=== PATIENT | male | born 1975 ===

== ENCOUNTER → 2022-12-29 | Emergency (ER) | payer SELFPAY ==
[~2022-12-29] VITALS: Ht 167.6 cm; Wt 64.0 kg
[~2022-12-29] MED LIST: AMIT100T2 PO; CYCL10TA9 PO; DULO60CA45 PO; ERGO2000 PO; GABA600T12 PO; HYDR50TA62 PO; HYDROMORPHONE 1 MG/1 ML DISP.SYRIN IV ONE; HYDROMORPHONE 1 MG/1 ML DISP.SYRIN ONE; IOHEXOL 350 100 ML INFUS..BTL ONE; IV NORMAL SALINE 250 ML IV ONE; OXYC80TA40 PO; PRAV40TA3 PO; PRAZ5CAP2 PO; SWABABLE VALVE TRANSFER SET EA MC ONE; TENECTEPLASE 50 MG KIT IVP ONE
[2022-12-29 19:31] LABS: BASOPHILS # (AUTO) 0.1 K/UL (0.0-0.2); BASOPHILS % (AUTO) 1.2 % (0.0-2.0); EOSINOPHILS # (AUTO) 0.3 K/uL (0.0-0.7); EOSINOPHILS % (AUTO) 2.6 % (0.0-7.0); HEMATOCRIT 43.8 % (36.7-47.1); HEMOGLOBIN 14.9 g/dL (12.5-16.3); LYMPHOCYTES # (AUTO) 3.6 K/uL (0.8-4.8); LYMPHOCYTES % (AUTO) 34.3 % (20.5-51.5); MEAN CORPUSCULAR HGB CONC 34 g/dL (32.5-36.3); MEAN CORPUSCULAR VOLUME 88.6 fL (73.0-96.2); MONOCYTES # (AUTO) 0.7 K/uL (0.1-1.30); MONOCYTES % (AUTO) 6.5 % (0.0-11.0); NEUTROPHILS # (AUTO) 5.9 K/uL (1.8-8.9); NEUTROPHILS % (AUTO) 55.4 % (38.5-71.5); PLATELET COUNT (AUTO) 259 K/uL (152-348); RED BLOOD CELL COUNT(AUTO) 4.95 MIL/uL (4.06-5.63); WHITE BLOOD COUNT (AUTO) 10.6 K/uL (3.6-10.2)
[2022-12-29 19:36] LABS: CALCIUM 8.7 mg/dL (8.5-10.1); CARBON DIOXIDE 22 mmol/L (21-32); CHLORIDE 105 mmol/L (98-107); GLUCOSE 111 mg/dL (74-106); POTASSIUM 3.9 mmol/L (3.5-5.1); SODIUM SERUM 140 mmol/L (136-145); UREA NITROGEN, BLOOD 14 mg/dL (7-18)
[2022-12-29 19:45] LABS: ALANINE AMINOTRANSFERASE 27 U/L (16-63); ALBUMIN 4.1 g/dL (3.4-5.0); ALKALINE PHOSPHATASE 66 U/L (50-136); ASPARTATE AMINOTRANSFERASE 6 U/L (15-37); BILIRUBIN,DIRECT 0.1 mg/dL (0.0-0.2); BILIRUBIN,TOTAL 0.4 mg/dL (0.2-1.0)
[2022-12-29 19:51] LABS: DIFFERENTIAL COMMENT 1
[2022-12-29 21:38] VITALS: O2SAT 99
[2022-12-30 01:11] LABS: EOSINOPHILS % (MANUAL) 2 % (0-8); LYMPHOCYTES % (MANUAL) 35 % (20-40); MONOCYTES % (MANUAL) 3 % (2-10); NEUTROPHILS % (MANUAL) 60 % (42-75); PLATELET ESTIMATE ADEQUATE
[2022-12-30 01:12] LABS: ANISOCYTOSIS 1+
== END | disposition home or self-care (01) ==
LOC: ER 19:08
DX: R53.1 Weakness (principal); R13.10 Dysphagia, unspecified; R47.1 Dysarthria and anarthria; H53.47 Heteronymous bilateral field defects; R29.810 Facial weakness; R20.2 Paresthesia of skin; I63.9 Cerebral infarction, unspecified; M54.50 Low back pain, unspecified; Z88.5 Allergy status to narcotic agent; Z88.8 Allergy status to other drugs, medicaments and biological substances; Z79.899 Other long term (current) drug therapy
CPT/HCPCS: 99291; 70496; 96374; 71045; 96375; 80076; 80048; 85025; 85730; 84484; 36415; 93005; 70498; 70450; 85007; Q9967; J1170 ×2; 70030-TC; A4663; J3101